=== PATIENT | male | born 1945 | race Caucasian/White ===

== ENCOUNTER → 2016-12-20 | Outpatient (CLI) | payer MEDICARE, OTHER ==
[~2016-12-20] MED LIST: ASPI-COR81 M1 PO; ATOXIMETIN-B1 CAP PO; DILTIAZEM120 MG PO; DITROPAN5 MG PO; HYTRIN2 M1 PO; PERCOCET 325 MG1 TA2 PO; PYRIDIUM200 MG PO; SIMVASTATIN40 MG PO; SULFAZINE500 MG PO; SUPER EPA W/BO400 MG PO; VICODIN ES 7501 TAB PO; Vicodin 5/500 505 MG PO; ZOFRAN ODT4 MG SL
== END | disposition home or self-care (01) ==
LOC: US 12-19 13:00 → CARD 12-19 15:00 → US 09:29
DX: I25.5 Ischemic cardiomyopathy (principal); R09.89 Other specified symptoms and signs involving the circulatory and respiratory systems; R42 Dizziness and giddiness; I10 Essential (primary) hypertension

== ENCOUNTER → 2017-01-03 | Outpatient (CLI) | payer MEDICARE, OTHER | END | disposition home or self-care (01) | LOC: US 13:20 | DX: E04.1 Nontoxic single thyroid nodule (principal) ==

== ENCOUNTER → 2017-10-06 | Outpatient (CLI) | payer MEDICARE, OTHER | END | disposition home or self-care (01) | LOC: CT 08:55 → MRI 11:00 | DX: M16.0 Bilateral primary osteoarthritis of hip (principal); E11.65 Type 2 diabetes mellitus with hyperglycemia; M25.561 Pain in right knee; M25.562 Pain in left knee; R26.89 Other abnormalities of gait and mobility; R25.9 Unspecified abnormal involuntary movements ==

== ENCOUNTER → 2023-01-09 | Outpatient (CLI) | payer MEDICARE | END | disposition home or self-care (01) | LOC: US 14:30 | PROVIDERS: ATTEND Internal Medicine Cardiovascular Disease | DX: I73.9 Peripheral vascular disease, unspecified (principal); I25.10 Atherosclerotic heart disease of native coronary artery without angina pectoris; I10 Essential (primary) hypertension ==